=== PATIENT | male | born 1955 | race African-American/Black ===

== ENCOUNTER 2021-07-18 05:54 | Inpatient (IN) ==
[2021-07-18] MEDS ORDERED: DEXAMETHASONE 4 MG/1 ML VIAL IV STA (06:46)
[2021-07-18] MEDS ORDERED: LEVOFLOXACIN INJ 750 MG in PREMIX 1 EACH IV STA (06:47)
[2021-07-18 06:56] LABS: Basophils % 0.2 % (0.0-0.8); Hematocrit 30.1 VOL% (42.0-52.0); Hemoglobin 9.5 GM/DL (14.0-18.0); Immature Granulocytes Absolute 0.12 #; Lymphocytes # 0.8 10*3/uL (1.4-4.0); Lymphocytes % 6.3 % (21.2-54.2); Mean Corpuscular HGB Conc 31.6 GM/DL (32-36); Mean Corpuscular Volume 102.4 FL (87-102); Monocytes % 2.8 % (1.7-12.7); Neutrophils % 89.7 % (38.7-73.9); Platelet Count 119 T/CUMM (130-400); Red Blood Count 2.94 MC/CUMM (3.8-5.5); Red Cell Distribution Width 13.9 % (9.3-17.3)
[2021-07-18 07:15] LABS: Band Neutrophils 13 % (0-10); Hypochromasia 1+; Lymphocytes 5 % (20-55); Metamyelocytes 1 %; Myelocytes 1 %; Segmented Neutrophils 79 % (50-85); Total Cells Counted 100
[2021-07-18 07:16] LABS: Microcytosis 1+; Ovalocytes Slight; Platelet Estimate Adequate
[2021-07-18 07:33] LABS: Albumin 3.1 G/DL (3.4-5.0); Bilirubin,Total 0.7 MG/DL (0.20-1.00); Calcium 6.9 MG/DL (8.5-10.1); Osmolality,Calculated 285.8 MOS/KG (273-304); Potassium 5.3 MMOL/L (3.5-5.1); Total Protein 6.6 G/DL (6.4-8.2)
[2021-07-18] MEDS ORDERED: ONDANSETRON 4 MG/2 ML VIAL IV PRN (08:38)
[2021-07-18] MEDS ORDERED: DEXTROSE 50% 25 GM/50 ML VIAL IV PRN (08:38)
[2021-07-18] MEDS ORDERED: GLUCAGON 1 MG VIAL IM PRN (08:38)
[2021-07-18 08:46] LABS: INR 1.1; PT Patient Result 12.4 SECS (10.5-12.0); Partial Thromboplastin Time 38.3 SECS (23.9-33.8)
[2021-07-18] MEDS: PANTOPRAZOLE 40 MG TABLET PO SCH (09:10)
[2021-07-18 09:12] LABS: Thyroid Stimulating Hormone 2.42 uIU/ml (0.358-3.74)
[2021-07-18] MEDS ORDERED: ALBUTEROL/IPRATROPIUM 3 ML NEB RESP TX PRN (11:21)
[2021-07-18] MEDS: SODIUM BICARBONATE 650 MG TABLET PO SCH ×2 (14:39→20:58)
[2021-07-18] MEDS: CETIRIZINE 10 MG TABLET PO SCH (14:39)
[2021-07-18] MEDS ORDERED: PNEUMOCOCCAL VACCINE (13 VALENT) 0.5 ML SYRINGE IM ONE (17:10)
[2021-07-18] MEDS: MONTELUKAST 10 MG TABLET PO SCH (20:58)
[2021-07-18] MEDS: methylPREDNISolone SOD SUC 40 MG/1 ML VIAL IV SCH (20:58)
[2021-07-19] MEDS: methylPREDNISolone SOD SUC 40 MG/1 ML VIAL IV SCH ×3 (07:06→21:28)
[2021-07-19 07:11] LABS: Basophils % 0.1 % (0.0-0.8); Hematocrit 28.2 VOL% (42.0-52.0); Hemoglobin 8.7 GM/DL (14.0-18.0); Immature Granulocytes % 3.6 %; Immature Granulocytes Absolute 0.37 #; Lymphocytes # 0.4 10*3/uL (1.4-4.0); Lymphocytes % 3.5 % (21.2-54.2); Mean Corpuscular HGB Conc 30.9 GM/DL (32-36); Mean Corpuscular Volume 100.7 FL (87-102); Mean Platelet Volume 11.1 FL (9.6-12.0); Monocytes % 0.9 % (1.7-12.7); Neutrophils % 91.9 % (38.7-73.9); Platelet Count 101 T/CUMM (130-400); Red Cell Distribution Width 13.3 % (9.3-17.3); White Blood Count 10.3 T/CUMM (4-12)
[2021-07-19 07:30] LABS: Calcium 6.9 MG/DL (8.5-10.1); Osmolality,Calculated 278.8 MOS/KG (273-304)
[2021-07-19 07:35] LABS: Potassium 6.6 MMOL/L (3.5-5.1)
[2021-07-19 07:36] LABS: Band Neutrophils 5 % (0-10); Lymphocytes 3 % (20-55); Platelet Estimate Decreased; Segmented Neutrophils 92 % (50-85); Total Cells Counted 100
[2021-07-19 07:38] LABS: Hypochromasia 1+; Microcytosis 1+
[2021-07-19] MEDS ORDERED: SODIUM POLYSTYRENE SULFATE 15 GM/60 ML BOTTLE PO ONE (07:44)
[2021-07-19] MEDS: SODIUM BICARBONATE 650 MG TABLET PO SCH ×3 (09:13→21:28)
[2021-07-19] MEDS: PANTOPRAZOLE 40 MG TABLET PO SCH (09:13)
[2021-07-19] MEDS: CETIRIZINE 10 MG TABLET PO SCH (09:13)
[2021-07-19 10:40] LABS: Hepatitis B Core IgM Quant 0.08 Index; Hepatitis B Surface Ag Quant < 0.10 Index; Hepatitis B Surface Ag Result Non-Reactive (NonReactive); Hepatitis C Virus Ab Quant 0.04 Index; Hepatitis C Virus Ab Result Non-Reactive (NonReactive)
[2021-07-19] MEDS ORDERED: HEPARIN 5,000 UNIT/1 ML VIAL ONE (12:37)
[2021-07-19] MEDS ORDERED: BUPIVACAINE MPF 0.25% 30 ML VIAL ONE (12:37)
[2021-07-19] MEDS ORDERED: LIDOCAINE 1% 20 ML VIAL ONE (12:37)
[2021-07-19] MEDS ORDERED: propofoL 200 MG/20 ML VIAL IV ONE (13:45)
[2021-07-19] MEDS ORDERED: LIDOCAINE 2% 5 ML VIAL ONE (13:45)
[2021-07-19] MEDS ORDERED: SODIUM CHLORIDE 0.9% 250 ML IV SCH (14:00)
[2021-07-19] MEDS ORDERED: HEPARIN 10,000 UNIT/10 ML VIAL IV SCH (15:45)
[2021-07-19] MEDS: METOPROLOL TARTRATE 50 MG TABLET PO SCH (21:28)
[2021-07-19] MEDS: MONTELUKAST 10 MG TABLET PO SCH (21:28)
[2021-07-20] MEDS: methylPREDNISolone SOD SUC 40 MG/1 ML VIAL IV SCH ×3 (05:39→20:52)
[2021-07-20 05:42] LABS: Basophils # 0.1 10*3/uL (0.0-0.2); Basophils % 0.5 % (0.0-0.8); Hematocrit 23.3 VOL% (42.0-52.0); Hemoglobin 7.6 GM/DL (14.0-18.0); Immature Granulocytes % 25.4 %; Immature Granulocytes Absolute 3.02 #; Lymphocytes # 0.4 10*3/uL (1.4-4.0); Lymphocytes % 3.3 % (21.2-54.2); Mean Corpuscular HGB Conc 32.6 GM/DL (32-36); Mean Corpuscular Volume 96.3 FL (87-102); Mean Platelet Volume 11.8 FL (9.6-12.0); Monocytes % 0.9 % (1.7-12.7); Neutrophils % 69.9 % (38.7-73.9); Platelet Count 83 T/CUMM (130-400); Red Blood Count 2.42 MC/CUMM (3.8-5.5); Red Cell Distribution Width 13.1 % (9.3-17.3); White Blood Count 11.9 T/CUMM (4-12)
[2021-07-20] MEDS: LEVOTHYROXINE 50 MCG TABLET PO SCH (06:17)
[2021-07-20 06:21] LABS: Band Neutrophils 10 % (0-10); Eosinophils 1 % (0-10); Hypochromasia Slight; Lymphocytes 2 % (20-55); Platelet Estimate Decreased; Segmented Neutrophils 84 % (50-85); Total Cells Counted 100
[2021-07-20 06:47] LABS: Potassium 4.1 MMOL/L (3.5-5.1)
[2021-07-20] MEDS: amLODIPine 10 MG TABLET PO SCH ×2 (09:00→09:58)
[2021-07-20] MEDS: METOPROLOL TARTRATE 50 MG TABLET PO SCH ×2 (09:57→20:55)
[2021-07-20] MEDS: SODIUM BICARBONATE 650 MG TABLET PO SCH ×3 (09:57→20:55)
[2021-07-20] MEDS: PANTOPRAZOLE 40 MG TABLET PO SCH (09:58)
[2021-07-20] MEDS: CETIRIZINE 10 MG TABLET PO SCH (09:58)
[2021-07-20] MEDS: ACETAMINOPHEN 325 MG TABLET PO PRN (14:08)
[2021-07-20] MEDS: LEVOFLOXACIN INJ 500 MG/100 ML PREMIX IV SCH (17:29)
[2021-07-20 17:46] LABS: ABG Base Excess 0.6 MMOL/L (-2.5-2.5); ABG HCO3 24.8 MMOL/L (20-26); ABG Oxygen Saturation 86.4 % (95-100); ABG PCO2 36.4 MM HG (35-48); ABG PH 7.437 (7.35-7.45); ABG PO2 52.8 MM HG (80-95); ABG TCO2 22.5 MMOL/L (23-27)
[2021-07-20] MEDS: ALBUTEROL/IPRATROPIUM 3 ML NEB RESP TX SCH (20:45)
[2021-07-20] MEDS: MONTELUKAST 10 MG TABLET PO SCH (20:55)
[2021-07-21] MEDS: ALBUTEROL/IPRATROPIUM 3 ML NEB RESP TX SCH ×4 (00:39→19:58)
[2021-07-21] MEDS: LEVOTHYROXINE 50 MCG TABLET PO SCH (05:49)
[2021-07-21] MEDS: methylPREDNISolone SOD SUC 40 MG/1 ML VIAL IV SCH ×3 (05:50→21:21)
[2021-07-21 06:27] LABS: Basophils % 0.2 % (0.0-0.8); Hematocrit 22.2 VOL% (42.0-52.0); Hemoglobin 7.4 GM/DL (14.0-18.0); Immature Granulocytes % 0.8 %; Immature Granulocytes Absolute 0.14 #; Lymphocytes # 0.5 10*3/uL (1.4-4.0); Lymphocytes % 3.1 % (21.2-54.2); Mean Corpuscular HGB Conc 33.3 GM/DL (32-36); Mean Corpuscular Volume 94.9 FL (87-102); Monocytes % 2.3 % (1.7-12.7); Neutrophils % 93.6 % (38.7-73.9); Platelet Count 122 T/CUMM (130-400); Red Blood Count 2.34 MC/CUMM (3.8-5.5); Red Cell Distribution Width 13.2 % (9.3-17.3); White Blood Count 17.2 T/CUMM (4-12)
[2021-07-21 06:50] LABS: Calcium 7.9 MG/DL (8.5-10.1); Osmolality,Calculated 279.8 MOS/KG (273-304); Potassium 3.3 MMOL/L (3.5-5.1)
[2021-07-21 07:27] LABS: Anisocytosis 2+; Band Neutrophils 28 % (0-10); Lymphocytes 2 % (20-55); Platelet Estimate Adequate; Segmented Neutrophils 69 % (50-85); Total Cells Counted 100
[2021-07-21 07:28] LABS: Hypochromasia 1+; Macrocytosis 1+; Tear Drop Cells Few
[2021-07-21] MEDS: PANTOPRAZOLE 40 MG TABLET PO SCH (08:43)
[2021-07-21] MEDS: amLODIPine 10 MG TABLET PO SCH (08:43)
[2021-07-21] MEDS: METOPROLOL TARTRATE 50 MG TABLET PO SCH ×2 (08:43→21:25)
[2021-07-21] MEDS: CETIRIZINE 10 MG TABLET PO SCH (08:43)
[2021-07-21] MEDS: SODIUM BICARBONATE 650 MG TABLET PO SCH ×3 (08:44→21:25)
[2021-07-21] MEDS: MONTELUKAST 10 MG TABLET PO SCH (21:25)
[2021-07-22] MEDS: ALBUTEROL/IPRATROPIUM 3 ML NEB RESP TX SCH ×4 (01:05→19:41)
[2021-07-22] MEDS: LEVOTHYROXINE 50 MCG TABLET PO SCH (05:55)
[2021-07-22 07:50] LABS: Basophils % 0.1 % (0.0-0.8); Hematocrit 22.9 VOL% (42.0-52.0); Hemoglobin 7.3 GM/DL (14.0-18.0); Immature Granulocytes % 1.1 %; Immature Granulocytes Absolute 0.16 #; Lymphocytes # 0.5 10*3/uL (1.4-4.0); Lymphocytes % 3.4 % (21.2-54.2); Mean Corpuscular HGB Conc 31.9 GM/DL (32-36); Mean Corpuscular Volume 96.6 FL (87-102); Mean Platelet Volume 10.9 FL (9.6-12.0); Monocytes % 5.4 % (1.7-12.7); NRBC # 0.02 10*3/uL; Platelet Count 112 T/CUMM (130-400); Red Blood Count 2.37 MC/CUMM (3.8-5.5); Red Cell Distribution Width 13.5 % (9.3-17.3); White Blood Count 14.9 T/CUMM (4-12)
[2021-07-22 08:06] LABS: Calcium 8.3 MG/DL (8.5-10.1); Osmolality,Calculated 284.1 MOS/KG (273-304); Potassium 3.1 MMOL/L (3.5-5.1)
[2021-07-22 08:16] LABS: Band Neutrophils 1 % (0-10); Lymphocytes 5 % (20-55); Segmented Neutrophils 91 % (50-85); Total Cells Counted 100
[2021-07-22 08:18] LABS: Hypochromasia 1+; Microcytosis 1+
[2021-07-22 08:20] LABS: Platelet Estimate Decreased
[2021-07-22 10:38] LABS: High Sensitive Troponin I* 151.2 ng/L (0-78)
[2021-07-22] MEDS: SODIUM BICARBONATE 650 MG TABLET PO SCH ×3 (11:41→20:17)
[2021-07-22] MEDS ORDERED: MAGNESIUM SULF RIDER 2 GM/50 ML PREMIX IV ONE (12:46)
[2021-07-22] MEDS ORDERED: POTASSIUM CHLORIDE 20 MEQ TABLET PO ONE (12:46)
[2021-07-22] MEDS: LEVOFLOXACIN INJ 500 MG/100 ML PREMIX IV SCH (13:38)
[2021-07-22] MEDS: methylPREDNISolone SOD SUC 40 MG/1 ML VIAL IV SCH ×2 (13:39→20:17)
[2021-07-22] MEDS: PANTOPRAZOLE 40 MG TABLET PO SCH (13:41)
[2021-07-22] MEDS: METOPROLOL TARTRATE 50 MG TABLET PO SCH ×2 (13:41→20:17)
[2021-07-22] MEDS: CETIRIZINE 10 MG TABLET PO SCH (13:42)
[2021-07-22] MEDS: amLODIPine 10 MG TABLET PO SCH (13:42)
[2021-07-22] MEDS: MONTELUKAST 10 MG TABLET PO SCH (20:17)
[2021-07-23] MEDS: ALBUTEROL/IPRATROPIUM 3 ML NEB RESP TX SCH ×4 (01:30→19:12)
[2021-07-23] MEDS: LEVOTHYROXINE 50 MCG TABLET PO SCH (05:30)
[2021-07-23 05:45] LABS: Calcium 8.5 MG/DL (8.5-10.1); Osmolality,Calculated 283.8 MOS/KG (273-304); Potassium 3.7 MMOL/L (3.5-5.1)
[2021-07-23 05:47] LABS: Basophils % 0.1 % (0.0-0.8); Hematocrit 23.2 VOL% (42.0-52.0); Hemoglobin 7.3 GM/DL (14.0-18.0); Immature Granulocytes % 2.5 %; Immature Granulocytes Absolute 0.22 #; Lymphocytes # 0.4 10*3/uL (1.4-4.0); Lymphocytes % 4.3 % (21.2-54.2); Mean Corpuscular HGB Conc 31.5 GM/DL (32-36); Mean Platelet Volume 11.3 FL (9.6-12.0); Monocytes % 8.9 % (1.7-12.7); NRBC # 0.02 10*3/uL; Neutrophils % 84.2 % (38.7-73.9); Platelet Count 106 T/CUMM (130-400); Red Blood Count 2.32 MC/CUMM (3.8-5.5); Red Cell Distribution Width 13.2 % (9.3-17.3)
[2021-07-23 05:48] LABS: White Blood Count 8.8 T/CUMM (4-12)
[2021-07-23 06:02] LABS: Band Neutrophils 1 % (0-10); Hypochromasia 1+; Lymphocytes 1 % (20-55); Platelet Estimate Adequate; Segmented Neutrophils 94 % (50-85); Total Cells Counted 100
[2021-07-23] MEDS ORDERED: MAGNESIUM SULF RIDER 2 GM/50 ML PREMIX IV ONE (07:20)
[2021-07-23] MEDS: methylPREDNISolone SOD SUC 40 MG/1 ML VIAL IV SCH (08:11)
[2021-07-23] MEDS: amLODIPine 10 MG TABLET PO SCH (08:15)
[2021-07-23] MEDS: PANTOPRAZOLE 40 MG TABLET PO SCH (08:15)
[2021-07-23] MEDS: SODIUM BICARBONATE 650 MG TABLET PO SCH ×3 (08:15→22:24)
[2021-07-23] MEDS: CETIRIZINE 10 MG TABLET PO SCH (08:15)
[2021-07-23] MEDS: METOPROLOL TARTRATE 50 MG TABLET PO SCH ×2 (08:16→22:24)
[2021-07-23] MEDS ORDERED: SODIUM CHLORIDE 0.9% 1,000 ML IV PRN (10:25)
[2021-07-23] MEDS: MONTELUKAST 10 MG TABLET PO SCH (22:24)
[2021-07-24] MEDS: ALBUTEROL/IPRATROPIUM 3 ML NEB RESP TX SCH ×4 (00:32→19:11)
[2021-07-24 05:42] LABS: Basophils % 0.3 % (0.0-0.8); Hematocrit 21.4 VOL% (42.0-52.0); Immature Granulocytes % 4.6 %; Immature Granulocytes Absolute 0.31 #; Lymphocytes # 0.6 10*3/uL (1.4-4.0); Lymphocytes % 9.2 % (21.2-54.2); Mean Corpuscular HGB Conc 32.7 GM/DL (32-36); Mean Corpuscular Volume 97.3 FL (87-102); Mean Platelet Volume 11.1 FL (9.6-12.0); Monocytes % 10.8 % (1.7-12.7); Neutrophils % 75.1 % (38.7-73.9); Platelet Count 93 T/CUMM (130-400); Red Cell Distribution Width 13.1 % (9.3-17.3); White Blood Count 6.7 T/CUMM (4-12)
[2021-07-24] MEDS: LEVOTHYROXINE 50 MCG TABLET PO SCH (05:52)
[2021-07-24 06:04] LABS: Band Neutrophils 2 % (0-10); Eosinophils 1 % (0-10); Hypochromasia 1+; Lymphocytes 11 % (20-55); Microcytosis 1+; Nucleated Red Blood Cells 1 (0-5); Platelet Estimate Decreased; Segmented Neutrophils 75 % (50-85); Total Cells Counted 100
[2021-07-24 06:10] LABS: Calcium 8.1 MG/DL (8.5-10.1); Potassium 3.5 MMOL/L (3.5-5.1)
[2021-07-24] MEDS ORDERED: methylPREDNISolone SOD SUC 40 MG/1 ML VIAL IV SCH (09:00)
[2021-07-24] MEDS: METOPROLOL TARTRATE 50 MG TABLET PO SCH ×2 (09:24→20:40)
[2021-07-24] MEDS: SODIUM BICARBONATE 650 MG TABLET PO SCH ×3 (09:25→20:40)
[2021-07-24] MEDS: CETIRIZINE 10 MG TABLET PO SCH (15:59)
[2021-07-24] MEDS: PANTOPRAZOLE 40 MG TABLET PO SCH (16:00)
[2021-07-24] MEDS: amLODIPine 10 MG TABLET PO SCH (16:00)
[2021-07-24] MEDS: LEVOFLOXACIN INJ 500 MG/100 ML PREMIX IV SCH (17:36)
[2021-07-24] MEDS: methylPREDNISolone SOD SUC 40 MG/1 ML VIAL IV SCH (20:44)
[2021-07-24] MEDS ORDERED: LEVOFLOXACIN INJ 500 MG/100 ML PREMIX IV SCH (21:00)
[2021-07-24] MEDS: MONTELUKAST 10 MG TABLET PO SCH (21:01)
[2021-07-25] MEDS: ALBUTEROL/IPRATROPIUM 3 ML NEB RESP TX SCH ×3 (00:23→14:13)
[2021-07-25] MEDS: ACETAMINOPHEN 325 MG TABLET PO PRN (03:25)
[2021-07-25 05:16] LABS: Basophils % 0.2 % (0.0-0.8); Hematocrit 27.1 VOL% (42.0-52.0); Immature Granulocytes % 3.4 %; Immature Granulocytes Absolute 0.32 #; Lymphocytes # 0.3 10*3/uL (1.4-4.0); Lymphocytes % 3.3 % (21.2-54.2); Mean Corpuscular HGB Conc 32.8 GM/DL (32-36); Mean Corpuscular Volume 98.2 FL (87-102); Mean Platelet Volume 10.8 FL (9.6-12.0); Monocytes % 3.9 % (1.7-12.7); Neutrophils % 89.2 % (38.7-73.9); Red Cell Distribution Width 12.8 % (9.3-17.3)
[2021-07-25 05:29] LABS: Hemoglobin 8.9 GM/DL (14.0-18.0); Platelet Count 95 T/CUMM (130-400); Red Blood Count 2.76 MC/CUMM (3.8-5.5); White Blood Count 9.5 T/CUMM (4-12)
[2021-07-25 05:36] LABS: Lymphocytes 4 % (20-55); Segmented Neutrophils 93 % (50-85); Total Cells Counted 100
[2021-07-25 05:37] LABS: Hypochromasia 1+; Microcytosis 1+; Platelet Estimate Decreased
[2021-07-25 05:40] LABS: Calcium 8.1 MG/DL (8.5-10.1); Osmolality,Calculated 280.1 MOS/KG (273-304); Potassium 3.8 MMOL/L (3.5-5.1)
[2021-07-25] MEDS: LEVOTHYROXINE 50 MCG TABLET PO SCH (06:19)
[2021-07-25] MEDS ORDERED: MAGNESIUM SULF RIDER 2 GM/50 ML PREMIX IV ONE (07:19)
[2021-07-25] MEDS: SODIUM BICARBONATE 650 MG TABLET PO SCH (08:59)
[2021-07-25] MEDS: METOPROLOL TARTRATE 50 MG TABLET PO SCH (08:59)
[2021-07-25] MEDS: PANTOPRAZOLE 40 MG TABLET PO SCH (08:59)
[2021-07-25] MEDS: amLODIPine 10 MG TABLET PO SCH (08:59)
[2021-07-25] MEDS: CETIRIZINE 10 MG TABLET PO SCH (08:59)
[2021-07-25] MEDS: methylPREDNISolone SOD SUC 40 MG/1 ML VIAL IV SCH (09:01)
[2021-07-25 12:59] VITALS: BP 131/78
== END 2021-07-25 14:15 | disposition home or self-care (01) | DRG 193 ==
LOC: N.ED 05:54 → SUATTDRO 08:13 → N.EDINP 08:13 → N.4E 11:51 → N.EDINP 07-22 21:51 → N.4E 07-22 21:52
PROVIDERS: ADMIT Internal Medicine; ATTEND Internal Medicine

== ENCOUNTER 2021-08-05 12:51 | Observation (INO) ==
[2021-08-05] MEDS ORDERED: ONDANSETRON 4 MG/2 ML VIAL IV STA (13:19)
[2021-08-05] MEDS ORDERED: PANTOPRAZOLE 40 MG VIAL IV STA (13:19)
[2021-08-05] MEDS ORDERED: SODIUM CHLORIDE 0.9% 500 ML IV STA (13:19)
[2021-08-05] MEDS ORDERED: HEPARIN LOCK FLUSH 500 UNIT/5 ML SYRINGE IV ONE (15:33)
[2021-08-05 15:41] LABS: Basophils % 0.1 % (0.0-0.8); Eosinophils # 0.1 10*3/uL (0.0-0.87); Eosinophils % 0.6 % (0.00-10.9); Hematocrit 22.3 VOL% (42.0-52.0); Immature Granulocytes % 0.9 %; Lymphocytes # 0.5 10*3/uL (1.4-4.0); Lymphocytes % 4.5 % (21.2-54.2); Mean Corpuscular HGB Conc 31.4 GM/DL (32-36); Mean Corpuscular Volume 100.5 FL (87-102); Mean Platelet Volume 9.3 FL (9.6-12.0); Monocytes % 7.4 % (1.7-12.7); Neutrophils % 86.5 % (38.7-73.9); Platelet Count 134 T/CUMM (130-400); Red Blood Count 2.22 MC/CUMM (3.8-5.5); Red Cell Distribution Width 13.5 % (9.3-17.3); White Blood Count 10.8 T/CUMM (4-12)
[2021-08-05 15:52] LABS: PT Patient Result 10.9 SECS (10.5-12.0)
[2021-08-05 15:53] LABS: Partial Thromboplastin Time 71.8 SECS (23.9-33.8)
[2021-08-05] MEDS ORDERED: PANTOPRAZOLE 40 MG TABLET PO STA (16:09)
[2021-08-05] MEDS ORDERED: ONDANSETRON ODT 4 MG TABLET PO STA (16:09)
[2021-08-05 16:11] LABS: Albumin 2.1 G/DL (3.4-5.0); Bilirubin,Total 0.4 MG/DL (0.20-1.00); Calcium 7.8 MG/DL (8.5-10.1); Osmolality,Calculated 289.7 MOS/KG (273-304); Potassium 3.2 MMOL/L (3.5-5.1)
[2021-08-05] MEDS ORDERED: ONDANSETRON 4 MG/2 ML VIAL IV PRN ×2 (16:34)
[2021-08-05] MEDS ORDERED: DEXTROSE 50% 25 GM/50 ML VIAL IV PRN ×2 (16:34)
[2021-08-05] MEDS ORDERED: ACETAMINOPHEN 325 MG TABLET PO PRN ×2 (16:34)
[2021-08-05] MEDS ORDERED: GLUCAGON 1 MG VIAL IM PRN ×2 (16:34)
[2021-08-05] MEDS ORDERED: SODIUM CHLORIDE 0.9% 1,000 ML IV PRN (16:36)
[2021-08-05] MEDS ORDERED: ALBUTEROL/IPRATROPIUM 3 ML NEB RESP TX PRN (16:38)
[2021-08-05] MEDS ORDERED: POTASSIUM CHLORIDE 20 MEQ TABLET PO ONE (16:57)
[2021-08-05 20:10] LABS: Hematocrit 23.1 VOL% (42.0-52.0)
[2021-08-05] MEDS: GABAPENTIN 100 MG CAPSULE PO SCH (20:28)
[2021-08-05] MEDS: SODIUM BICARBONATE 650 MG TABLET PO SCH (20:28)
[2021-08-05] MEDS ORDERED: MONTELUKAST 10 MG TABLET PO SCH (21:00)
[2021-08-05] MEDS ORDERED: INFLUENZA VIRUS VACCINE 0.5 ML SYRINGE IM ONE (21:49)
[2021-08-06] MEDS ORDERED: LEVOTHYROXINE 50 MCG TABLET PO SCH (06:30)
[2021-08-06 06:58] LABS: Basophils % 0.1 % (0.0-0.8); Eosinophils # 0.1 10*3/uL (0.0-0.87); Eosinophils % 0.9 % (0.00-10.9); Hematocrit 25.6 VOL% (42.0-52.0); Hemoglobin 8.3 GM/DL (14.0-18.0); Immature Granulocytes % 0.8 %; Immature Granulocytes Absolute 0.07 #; Lymphocytes # 0.8 10*3/uL (1.4-4.0); Lymphocytes % 9.7 % (21.2-54.2); Mean Corpuscular HGB Conc 32.4 GM/DL (32-36); Mean Corpuscular Volume 96.6 FL (87-102); Mean Platelet Volume 9.8 FL (9.6-12.0); Monocytes % 7.3 % (1.7-12.7); Neutrophils % 81.2 % (38.7-73.9); Platelet Count 123 T/CUMM (130-400); Red Blood Count 2.65 MC/CUMM (3.8-5.5); Red Cell Distribution Width 14.6 % (9.3-17.3); White Blood Count 8.5 T/CUMM (4-12)
[2021-08-06] MEDS: IPRATROPIUM 500 MCG/2.5 ML NEB RESP TX SCH ×2 (07:25→11:30)
[2021-08-06 07:31] LABS: Calcium 7.9 MG/DL (8.5-10.1); Osmolality,Calculated 289.8 MOS/KG (273-304); Potassium 3.3 MMOL/L (3.5-5.1)
[2021-08-06] MEDS ORDERED: PANTOPRAZOLE 40 MG VIAL IV SCH (09:00)
[2021-08-06] MEDS ORDERED: CETIRIZINE 10 MG TABLET PO SCH (09:00)
[2021-08-06] MEDS ORDERED: METOPROLOL SUCCINATE XL 100 MG TABLET PO SCH (09:00)
[2021-08-06 09:16] LABS: Risk Ratio 2.56; VLDL Cholesterol 19.4 MG/DL
[2021-08-06] MEDS: GABAPENTIN 100 MG CAPSULE PO SCH (09:33)
[2021-08-06] MEDS: SODIUM BICARBONATE 650 MG TABLET PO SCH (09:33)
[2021-08-06 11:30] VITALS: BP 134/78
[2021-08-06 12:53] LABS: Hematocrit 28.4 VOL% (42.0-52.0); Hemoglobin 9.2 GM/DL (14.0-18.0)
== END 2021-08-06 14:04 | disposition home or self-care (01) ==
LOC: N.ED 12:51 → N.EDINP 12:51 → N.3E 18:54
PROVIDERS: ADMIT Internal Medicine; ATTEND Internal Medicine

== ENCOUNTER 2022-02-27 21:50 | Observation (INO) ==
[2022-02-27] MEDS ORDERED: methylPREDNISolone SOD SUC 125 MG/2 ML VIAL IV STA (22:28)
[2022-02-27] MEDS ORDERED: IPRATROPIUM 500 MCG/2.5 ML NEB RESP TX STA (22:28)
[2022-02-27] MEDS ORDERED: ONDANSETRON 4 MG/2 ML VIAL IV STA (22:28)
[2022-02-27] MEDS ORDERED: ALBUTEROL NEB SOLN 5 MG/ML 20 ML/BOTTLE CONT NEB SCH (22:30)
[2022-02-27 22:56] LABS: ABG Base Excess -1.5 MMOL/L (-2.5-2.5); ABG HCO3 23.2 MMOL/L (20-26); ABG Oxygen Saturation 98.5 % (95-100); ABG PCO2 55.4 MM HG (35-48); ABG PH 7.282 (7.35-7.45); ABG TCO2 23.7 MMOL/L (23-27)
[2022-02-28 00:02] LABS: Albumin 3.6 G/DL (3.4-5.0); Bilirubin,Total 0.4 MG/DL (0.20-1.00); Osmolality,Calculated 279.8 MOS/KG (273-304); Potassium 4.6 MMOL/L (3.5-5.1); Total Protein 7.6 G/DL (6.4-8.2)
[2022-02-28 00:35] LABS: Basophils # 0.1 10*3/uL (0.0-0.2); Basophils % 0.4 % (0.0-0.8); Eosinophils # 0.3 10*3/uL (0.0-0.87); Eosinophils % 2.4 % (0.00-10.9); Hematocrit 36.9 VOL% (42.0-52.0); Hemoglobin 11.5 GM/DL (14.0-18.0); Immature Granulocytes % 0.3 %; Immature Granulocytes Absolute 0.04 #; Lymphocytes # 1.8 10*3/uL (1.4-4.0); Lymphocytes % 14.9 % (21.2-54.2); Mean Corpuscular HGB Conc 31.2 GM/DL (32-36); Mean Corpuscular Volume 107.6 FL (87-102); Mean Platelet Volume 11.3 FL (9.6-12.0); Monocytes # 1.3 10*3/uL (0.11-0.8); Monocytes % 10.6 % (1.7-12.7); Neutrophils % 71.4 % (38.7-73.9); Platelet Count 143 T/CUMM (130-400); Red Blood Count 3.43 MC/CUMM (3.8-5.5); Red Cell Distribution Width 13.4 % (9.3-17.3); White Blood Count 11.9 T/CUMM (4-12)
[2022-02-28] MEDS ORDERED: ONDANSETRON 4 MG/2 ML VIAL IV PRN (01:08)
[2022-02-28] MEDS ORDERED: tiZANidine 4 MG TABLET PO PRN (01:19)
[2022-02-28] MEDS ORDERED: ACETAMINOPHEN 500 MG TABLET PO PRN (01:19)
[2022-02-28] MEDS: cefTRIAXone 1,000 MG in SODIUM CHLORIDE 0.9% 100 ML IV SCH (01:54)
[2022-02-28] MEDS: LEVOTHYROXINE 50 MCG TABLET PO SCH (05:19)
[2022-02-28] MEDS: ALBUTEROL/IPRATROPIUM 3 ML NEB RESP TX SCH ×5 (07:04→23:33)
[2022-02-28 07:38] LABS: Alanine Aminotransferase 18 U/L (16-61); Albumin 3.2 G/DL (3.4-5.0); Alkaline Phosphatase 62 U/L (45-117); Aspartate Amino Transferase 25 U/L (0-37); Bilirubin,Total < 0.39 MG/DL (0.20-1.00); Blood Urea Nitrogen 37 MG/DL (7-18); Carbon Dioxide 21 MMOL/L (21-32); Chloride 101 MMOL/L (98-107); Estimated Glom Filtration Rate 5 ML/MIN; Glucose 131 MG/DL (74-106); Osmolality,Calculated 283.8 MOS/KG (273-304); Potassium 4.3 MMOL/L (3.5-5.1); Sodium 137 MMOL/L (136-145); Total Protein 7.8 G/DL (6.4-8.2)
[2022-02-28 08:31] LABS: Basophils % 0.2 % (0.0-0.8); Eosinophils % 0.1 % (0.00-10.9); Hematocrit 35.1 VOL% (42.0-52.0); Hemoglobin 11.2 GM/DL (14.0-18.0); Immature Granulocytes % 0.7 %; Immature Granulocytes Absolute 0.08 #; Lymphocytes # 0.5 10*3/uL (1.4-4.0); Lymphocytes % 3.8 % (21.2-54.2); Mean Corpuscular HGB Conc 31.9 GM/DL (32-36); Mean Platelet Volume 10.7 FL (9.6-12.0); Monocytes # 0.2 10*3/uL (0.11-0.8); Monocytes % 1.6 % (1.7-12.7); Neutrophils % 93.6 % (38.7-73.9); Platelet Count 142 T/CUMM (130-400); Red Blood Count 3.31 MC/CUMM (3.8-5.5); Red Cell Distribution Width 13.4 % (9.3-17.3); White Blood Count 12.2 T/CUMM (4-12)
[2022-02-28 08:57] LABS: Band Neutrophils 6 % (0-10); Eosinophils 1 % (0-10); Lymphocytes 6 % (20-55); Total Cells Counted 100
[2022-02-28 08:58] LABS: Anisocytosis 1+; Hypochromia Slight; Platelet Estimate Normal; Polychromasia Few
[2022-02-28] MEDS: SODIUM BICARBONATE 650 MG TABLET PO SCH ×2 (09:02→20:35)
[2022-02-28] MEDS: ENOXAPARIN 30 MG/0.3 ML SYRINGE SUBCUT SCH (09:02)
[2022-02-28] MEDS: GABAPENTIN 100 MG CAPSULE PO SCH ×2 (09:02→20:25)
[2022-02-28] MEDS: FUROSEMIDE 20 MG TABLET PO SCH (09:02)
[2022-02-28] MEDS: methylPREDNISolone SOD SUC 40 MG/1 ML VIAL IV SCH ×2 (09:02→17:45)
[2022-02-28] MEDS: PANTOPRAZOLE 40 MG TABLET PO SCH (11:12)
[2022-02-28] MEDS ORDERED: HEPARIN 10,000 UNIT/10 ML VIAL IV PRN (14:26)
[2022-02-28] MEDS: NICOTINE 21 MG/24 HR PATCH TRANSDERM SCH (17:45)
[2022-02-28] MEDS: buPROPion SR 100 MG TABLET PO SCH (17:45)
[2022-02-28] MEDS: guaiFENesin/DM ER 600-30 MG TABLET PO SCH ×2 (17:45→20:25)
[2022-02-28] MEDS ORDERED: levETIRAcetam 500 MG TABLET PO SCH (21:00)
[2022-02-28] MEDS ORDERED: ROSUVASTATIN 20 MG TABLET PO SCH (21:00)
[2022-02-28] MEDS ORDERED: MONTELUKAST 10 MG TABLET PO SCH (21:00)
[2022-03-01] MEDS: methylPREDNISolone SOD SUC 40 MG/1 ML VIAL IV SCH ×2 (00:49→09:55)
[2022-03-01] MEDS: cefTRIAXone 1,000 MG in SODIUM CHLORIDE 0.9% 100 ML IV SCH (02:29)
[2022-03-01] MEDS: ALBUTEROL/IPRATROPIUM 3 ML NEB RESP TX SCH ×3 (02:44→10:45)
[2022-03-01] MEDS: LEVOTHYROXINE 50 MCG TABLET PO SCH (05:27)
[2022-03-01 05:34] LABS: Basophils % 0.1 % (0.0-0.8); Hematocrit 34.4 VOL% (42.0-52.0); Hemoglobin 10.9 GM/DL (14.0-18.0); Immature Granulocytes % 0.8 %; Immature Granulocytes Absolute 0.12 #; Lymphocytes # 0.5 10*3/uL (1.4-4.0); Lymphocytes % 3.5 % (21.2-54.2); Mean Corpuscular HGB Conc 31.7 GM/DL (32-36); Mean Corpuscular Volume 106.5 FL (87-102); Mean Platelet Volume 11.1 FL (9.6-12.0); Monocytes # 0.7 10*3/uL (0.11-0.8); Monocytes % 4.9 % (1.7-12.7); Neutrophils % 90.7 % (38.7-73.9); Platelet Count 144 T/CUMM (130-400); Red Blood Count 3.23 MC/CUMM (3.8-5.5); Red Cell Distribution Width 13.2 % (9.3-17.3); White Blood Count 14.2 T/CUMM (4-12)
[2022-03-01 05:51] LABS: Calcium 9.4 MG/DL (8.5-10.1); Osmolality,Calculated 281.2 MOS/KG (273-304); Potassium 4.2 MMOL/L (3.5-5.1)
[2022-03-01 08:00] LABS: Lymphocytes 8 % (20-55); Total Cells Counted 100
[2022-03-01 08:01] LABS: Anisocytosis 2+; Macrocytosis 1+; Platelet Estimate Adequate
[2022-03-01 08:15] VITALS: BP 134/63
[2022-03-01] MEDS: SODIUM BICARBONATE 650 MG TABLET PO SCH (09:49)
[2022-03-01] MEDS: FUROSEMIDE 20 MG TABLET PO SCH (09:50)
[2022-03-01] MEDS: buPROPion SR 100 MG TABLET PO SCH (09:50)
[2022-03-01] MEDS: guaiFENesin/DM ER 600-30 MG TABLET PO SCH (09:50)
[2022-03-01] MEDS: PANTOPRAZOLE 40 MG TABLET PO SCH (09:51)
[2022-03-01] MEDS: GABAPENTIN 100 MG CAPSULE PO SCH (09:51)
[2022-03-01] MEDS: ENOXAPARIN 30 MG/0.3 ML SYRINGE SUBCUT SCH (09:52)
[2022-03-01] MEDS: NICOTINE 21 MG/24 HR PATCH TRANSDERM SCH (11:16)
== END 2022-03-01 11:15 | disposition home or self-care (01) ==
LOC: N.EDINP 21:50 → N.ED 21:50 → SUATTDRO 02-28 01:08 → N.3E 02-28 01:54
PROVIDERS: ADMIT Hospitalist; ATTEND Emergency Medicine